=== PATIENT | male | born 1995 | race Caucasian/White ===

== ENCOUNTER 2024-06-17 16:23 | Inpatient (IN) | payer OTHER ==
[~2024-06-17] VITALS: Ht 165.1 cm; Wt 72.6 kg
[2024-06-17 16:46] VITALS: O2SAT 100
[2024-06-17 17:07] LABS: BASOPHILS % 0.3 % (0.0-2.0); EOSINOPHILS % 0.2 % (0.0-5.0); HEMATOCRIT. 37.9 % (42.0-52.0); HEMOGLOBIN. 12.3 g/dL (14.0-18.0); LYMPHOCYTES % 23.2 % (20.0-50.0); MEAN CORPUSCULAR HEMOGLOBIN 29.1 pg (28.0-32.0); MEAN CORPUSCULAR HGB CONC 32.5 g/dL (31.0-37.0); MEAN CORPUSCULAR VOLUME 89.5 fL (80.0-94.0); MEAN PLATELET VOLUME 11.1 fl (7.4-10.4); MONOCYTES % 4.5 % (2.0-8.0); NEUTROPHILS % 71.8 % (40.0-76.0); PLATELET 186 x1000/uL (130-400); RED BLOOD CELL COUNT 4.24 mill/uL (4.7-6.1); RED CELL DISTRIBUTION WIDTH 13.8 % (11.6-14.6); WHITE BLOOD COUNT 10.5 x1000/uL (4.5-11.0)
[2024-06-17 17:12] LABS: CHLORIDE 105 mEq/L (98-107); POTASSIUM 3.9 mEq/L (3.5-5.1); SODIUM 138 mEq/L (136-145)
[2024-06-17 17:13] LABS: CALCIUM 9.7 mg/dL (8.7-10.4); CARBON DIOXIDE 26 mEq/L (21-32)
[2024-06-17 17:15] LABS: PARTIAL THROMBOPLASTIN TIME 25.3 sec (23.4-31.0); PROTHROMBIN TIME 10.9 sec (9.6-11.0)
[2024-06-17 17:18] LABS: CREATININE 0.8 mg/dL (0.6-1.3); GLUCOSE 109 mg/dL (70-105); UREA NITROGEN BLOOD 21 mg/dL (9-23)
[2024-06-17 17:27] LABS: TROPONIN I HIGH SENSITIVITY 75 ng/L (3.0-53)
[2024-06-17 17:41] LABS: ALANINE AMINOTRANSFERASE 43 IU/L (10-49); ALBUMIN 4.2 g/dL (3.2-4.8); ASPARTATE AMINOTRANSFERASE 26 IU/L (<34); BILIRUBIN DIRECT 0.1 mg/dL (<=3.0); BILIRUBIN TOTAL 0.5 mg/dL (0.1-1.0); PROTEIN TOTAL 7.1 g/dL (6.0-8.3)
[2024-06-17 18:06] LABS: ETHANOL BLOOD < 10 mg/dL (<10)
[2024-06-17 20:06] LABS: CLARITY URINE CLEAR (CLEAR); COLOR URINE YELLOW (YELLOW); GLUCOSE URINE NEGATIVE (NEGATIVE); KETONES URINE NEGATIVE (NEGATIVE); LEUKOCYTE ESTERASE URINE NEGATIVE (NEGATIVE); NITRITE URINE NEGATIVE (NEGATIVE); OCCULT BLOOD URINE NEGATIVE (NEGATIVE); PROTEIN URINE NEGATIVE (NEGATIVE); SPECIFIC GRAVITY URINE 1.005 (1.005-1.030); UROBILINOGEN URINE 0.2 E.U./dL (0.2-1.0)
[2024-06-17] MEDS: PANTOPRAZOLE SODIUM 40 MG/VIAL IV ONE (20:51)
[2024-06-17] MEDS: ONDANSETRON HCL 4MG/2ML INJ IV ONE (20:51)
[2024-06-17] MEDS: MAGNESIUM/ALUMINUM HYDROXIDE/SIMETHICONE 30ML UDC PO ONE (20:51)
[2024-06-17] MEDS: SODIUM CHLORIDE 0.9% 1,000 ML IV ONE (20:52)
[2024-06-18] VITALS: BP 127/63; PULSE 83; RESP 20; TEMP 36.3; O2SAT 97
[2024-06-18 00:46] LABS: HEMATOCRIT 30.2 % (42.0-52.0); HEMOGLOBIN 10.3 g/dL (14.0-18.0)
[2024-06-18 01:09] LABS: TROPONIN I HIGH SENSITIVITY 55 ng/L (3.0-53)
[2024-06-18 01:45] VITALS: BP 127/63; PULSE 94; RESP 20; TEMP 36.3
[2024-06-18 04:00] VITALS: BP 112/68; PULSE 91; RESP 18; TEMP 35.9; O2SAT 98
[2024-06-18] MEDS ORDERED: IPRATROPIUM/ALBUTEROL 0.5-3(2.5)MG/3ML NEB HHN PRN (06:30)
[2024-06-18] MEDS ORDERED: ACETAMINOPHEN 325MG TABLET PO PRN (06:30)
[2024-06-18] MEDS ORDERED: CLONIDINE 0.1MG TABLET PO PRN (06:30)
[2024-06-18] MEDS ORDERED: DOCUSATE SODIUM 100MG CAPSULE PO PRN (06:30)
[2024-06-18] MEDS ORDERED: ONDANSETRON HCL 4MG/2ML INJ IV PRN (06:30)
[2024-06-18 08:00] VITALS: PULSE 71; RESP 18; TEMP 36.7; O2SAT 98
[2024-06-18] MEDS: DEXT 5%/0.9% NACL 1,000 ML IV SCH (08:35)
[2024-06-18] MEDS: PANTOPRAZOLE SODIUM 40 MG/VIAL IV SCH (08:37)
[2024-06-18 10:43] LABS: IRON 111 ug/dL (65-175)
[2024-06-18 10:46] LABS: PHOSPHORUS 3.1 mg/dL (2.5-4.9); TOTAL IRON BINDING CAPACITY 234 ug/dl (250-425)
[2024-06-18] MEDS: ACETAMINOPHEN 325MG TABLET PO PRN (12:06)
[2024-06-18 12:12] LABS: HEMOGLOBIN 9.9 g/dL (14.0-18.0)
[2024-06-18 16:20] LABS: CREATINE KINASE MB FRACTION 0.6 ng/mL (0.5-3.6)
[2024-06-18 16:22] LABS: VITAMIN B12 SERUM 492 pg/mL (211-911)
[2024-06-18 16:23] LABS: FOLIC ACID (FOLATE) SERUM 14.88 ng/mL (>5.38)
[2024-06-18 16:33] LABS: HEPATITIS B SURFACE ANTIGEN NEGATIVE (Negative)
[2024-06-18 16:54] LABS: HEPATITIS A AB IGM NEGATIVE (Negative); HEPATITIS B CORE AB IGM NEGATIVE (Negative)
[2024-06-18 16:55] LABS: HEPATITIS C AB NON REACTIVE (Neg) (Negative)
[2024-06-18] MEDS ORDERED: SUCRALFATE 1G TABLET PO SCH (17:20)
== END 2024-06-18 19:10 | disposition short-term general hospital (02) | DRG 368 ==
LOC: ER 16:23 → EDBEDREQ 19:06 → 6WST 22:38 → EDBEDREQTM 06-18 00:03 → EDBEDREQ 06-18 00:03
PROVIDERS: ADMIT Hospitalist; ATTEND Hospitalist
DX: K22.6 Gastro-esophageal laceration-hemorrhage syndrome (principal); I21.A1 Myocardial infarction type 2; R57.8 Other shock; D64.9 Anemia, unspecified; K76.0 Fatty (change of) liver, not elsewhere classified; K21.9 Gastro-esophageal reflux disease without esophagitis
CPT/HCPCS: 36415; 71045; 76700; 80048; 80076; 80320; 81003; 82270; 82550; 82553; 82607; 82728; 82746; 83540; 83550; 83605; 83735; 84100; 84145; 84484; 85014; 85018; 85025; 85044; 86705; 86709; 86850; 86900; 87340; 93005; 99291; J2405; J2470; J7030; J7042; G0480